=== PATIENT | male | born 1970 | race Caucasian/White ===

== ENCOUNTER → 2018-07-14 | Outpatient (CLI) | payer OTHER ==
[~2018-07-14] MED LIST: AMLO10TA6 PO; ASPI-496 PO; DULO60CA55 PO; LOSA25TA6 PO; METH-356 PO; METO-93 PO
[2018-07-14 10:00] LABS: BASOPHILS # (AUTO) 0.04 x10^3/uL (0-0.1); BASOPHILS % (AUTO) 0 % (0-1); EOSINOPHILS # (AUTO) 0.18 x10^3/uL (0-0.4); EOSINOPHILS % (AUTO) 2 % (1-7); LYMPHOCYTES % (AUTO) 25 % (22-44); MD NO; MEAN CORPUSCULAR HEMOGLOBIN 30.5 pg (27.5-34.5); MEAN CORPUSCULAR HGB CONC 34.2 g/dL (33.2-36.2); MEAN CORPUSCULAR VOLUME 89.1 fL (81-97); MEAN PLATELET VOLUME 8.4 fL (7.4-10.4); MONOCYTES # (AUTO) 0.55 x10^3/uL (0.2-0.8); MONOCYTES % (AUTO) 7 % (2-9); NEUTROPHILS # (AUTO) 5.31 x10^3/uL (1.8-6.8); NEUTROPHILS % (AUTO) 66 % (42-75); PLATELET COUNT 232 x10^3/uL (130-400); RED BLOOD COUNT 6.54 x10^6/uL (4.38-5.82); RED CELL DISTRIBUTION WIDTH 14.1 % (9.4-14.8)
[2018-07-14 10:05] LABS: ALBUMIN 3.5 g/dL (3.4-5.0); ANION GAP 6 mmol/L (5-15); CALCIUM 8.4 mg/dL (8.5-10.1); CHLORIDE 103 mmol/L (98-107)
[2018-07-14 10:11] LABS: ALANINE AMINOTRANSFERASE 45 U/L (12-78); ALKALINE PHOSPHATASE 52 U/L (45-117); CREATININE 0.86 mg/dL (0.7-1.3); TOTAL PROTEIN 7.6 g/dL (6.4-8.2)
== END | disposition home or self-care (01) ==
LOC: STAR 08:59
PROVIDERS: ATTEND Thoracic Surgery (Cardiothoracic Vascular Surgery)
DX: Z01.818 Encounter for other preprocedural examination (principal)
CPT/HCPCS: 36415; 80053; 85025; 93005

== ENCOUNTER 2018-07-20 07:55 | Inpatient (IN) | payer OTHER ==
[~2018-07-20] VITALS: Ht 177.8 cm; Wt 145.3 kg
[2018-07-20] MEDS ORDERED: LACTATED RINGERS 1,000 ML IV SCH ×2 (08:38→12:18)
[2018-07-20 09:08] VITALS: BP 160/110
[2018-07-20] MEDS ORDERED: EPINEPHRINE 1 MG/ML, 1ML ONE (09:29)
[2018-07-20] MEDS ORDERED: BUPIVACAINE/PF 0.5% ONE (09:29)
[2018-07-20] MEDS ORDERED: MIDAZOLAM 1 MG/ML, 2ML ONE (09:45)
[2018-07-20] MEDS ORDERED: DEXAMETHASONE 4 MG/ML, 1ML ONE (10:02)
[2018-07-20] MEDS ORDERED: CEFAZOLIN 1,000 MG ONE (10:02)
[2018-07-20] MEDS ORDERED: NEOSTIGMINE 1 MG/ML, 10ML ONE (10:02)
[2018-07-20] MEDS ORDERED: ROCURONIUM 10MG/ML,5ML ONE (10:02)
[2018-07-20] MEDS ORDERED: GLYCOPYRROLATE 0.2MG/1ML, 5ML ONE (10:02)
[2018-07-20] MEDS ORDERED: LACTATED RINGERS 1,000 ML ONE (10:02)
[2018-07-20] MEDS ORDERED: SUCCINYLCHOLINE 20 MG/ML, 10ML ONE (10:02)
[2018-07-20] MEDS ORDERED: PROPOFOL 10 MG/ML, 20ML ONE (10:02)
[2018-07-20] MEDS ORDERED: FENTANYL PF 250 MCG/5ML ONE (10:51)
[2018-07-20] MEDS ORDERED: FENTANYL PF 100 MCG/2ML ONE ×4 (11:14→13:08)
[2018-07-20] MEDS ORDERED: HYDROMORPHONE EPI SCH (12:00)
[2018-07-20] MEDS ORDERED: BUPIVACAINE EPI SCH (12:00)
[2018-07-20] MEDS ORDERED: ONDANSETRON 2MG/ML, 2ML IV PRN (12:00)
[2018-07-20] MEDS ORDERED: SODIUM CHLORIDE 0.9% EPI SCH (12:00)
[2018-07-20] MEDS ORDERED: LABETALOL 5MG/ML, 20ML IV PRN (12:00)
[2018-07-20] MEDS ORDERED: hydrALAzine 20 MG/ML, 1ML IV PRN (12:00)
[2018-07-20] MEDS ORDERED: OXYcodone 5 MG/5 ML ORAL.SOL UDC PO PRN (12:00)
[2018-07-20] MEDS ORDERED: ACETAMINOPHEN 325 MG TABLET PO PRN (12:00)
[2018-07-20] MEDS ORDERED: HYDROmorphone 2 MG/ML, 1ML ONE (12:26)
[2018-07-20] MEDS ORDERED: ONDANSETRON 2MG/ML, 2ML IVPush PRN (12:30)
[2018-07-20] MEDS ORDERED: ENALAPRILAT 1.25 MG/ML, 2ML IVPush PRN (12:30)
[2018-07-20] MEDS ORDERED: FAMOTIDINE 20 MG TABLET PO SCH (12:30)
[2018-07-20] MEDS ORDERED: DIPHENHYDRAMINE 50 MG/ML, 1ML IVPush PRN (12:30)
[2018-07-20] MEDS ORDERED: LORazepam 2 MG/ML, 1ML IVPush PRN (12:30)
[2018-07-20] MEDS ORDERED: DIPHENHYDRAMINE 25 MG CAPSULE PO PRN (12:30)
[2018-07-20] MEDS ORDERED: hydrALAzine 20 MG/ML, 1ML IVPush PRN (12:30)
[2018-07-20] MEDS: HYDROmorphone 1 MG/ML, 1ML IV PRN ×4 (12:31→13:57)
[2018-07-20] MEDS: FENTANYL PF 100 MCG/2ML IV PRN ×2 (12:31→12:36)
[2018-07-20] MEDS ORDERED: LORazepam 2 MG/ML, 1ML ONE (12:42)
[2018-07-20] MEDS ORDERED: OXYcodone 5 MG/5 ML ORAL.SOL UDC ONE (12:57)
[2018-07-20] MEDS ORDERED: HYDROmorphone 5 MG, BUPIVACAINE/PF 0.5%, 30ML 62.5 ML in SODIUM CHLORIDE 0.9% 182.5 ML EPIDCONT SCH (13:00)
[2018-07-20] MEDS ORDERED: METHADONE 10 MG TABLET PO ONE (14:00)
[2018-07-20] MEDS: HYDROmorphone 2 MG/ML, 1ML IV PRN ×4 (14:15→14:51)
[2018-07-20 15:20] VITALS: BP 152/84
[2018-07-20] MEDS: INSULIN REGULAR 100 UNITS/ML, 3ML VIAL SQ-INSULIN SCH ×3 (16:00→21:06)
[2018-07-20] MEDS ORDERED: METOPROLOL SUCCINATE 25 MG TAB.ER.24H ONE (17:17)
[2018-07-20] MEDS: METOPROLOL SUCCINATE 50 MG TAB.ER.24H PO SCH ×2 (17:27→21:00)
[2018-07-20] MEDS: METHADONE 10 MG TABLET PO SCH ×2 (17:27→21:06)
[2018-07-20 17:30] VITALS: BP 143/84
[2018-07-20 18:32] VITALS: BP 141/85
[2018-07-20] MEDS ORDERED: HYDROmorphone 2 MG/ML, 1ML IVPush PRN (19:00)
[2018-07-20] MEDS ORDERED: HYDROmorphone PCA 30 MG/30 ML IV PRN (19:00)
[2018-07-20] MEDS ORDERED: METOPROLOL SUCCINATE 100 MG TAB.ER.24H ONE (20:53)
[2018-07-20] MEDS: FAMOTIDINE 20 MG/2 ML IVPush SCH (21:06)
[2018-07-20] MEDS: LORazepam 0.5MG TABLET PO PRN (23:05)
[2018-07-20 23:26] VITALS: BP 122/55
[2018-07-21 04:00] VITALS: BP 123/62
[2018-07-21 04:30] VITALS: BP 130/70
[2018-07-21 05:57] LABS: BASOPHILS # (AUTO) 0.03 x10^3/uL (0-0.1); BASOPHILS % (AUTO) 0 % (0-1); EOSINOPHILS % (AUTO) 0 % (1-7); LYMPHOCYTES # (AUTO) 1.92 x10^3/uL (1-3.4); LYMPHOCYTES % (AUTO) 12 % (22-44); MD NO; MEAN CORPUSCULAR HEMOGLOBIN 30.9 pg (27.5-34.5); MEAN CORPUSCULAR HGB CONC 34.2 g/dL (33.2-36.2); MEAN CORPUSCULAR VOLUME 90.3 fL (81-97); MEAN PLATELET VOLUME 9.1 fL (7.4-10.4); MONOCYTES # (AUTO) 1.24 x10^3/uL (0.2-0.8); MONOCYTES % (AUTO) 8 % (2-9); NEUTROPHILS # (AUTO) 12.48 x10^3/uL (1.8-6.8); NEUTROPHILS % (AUTO) 80 % (42-75); PLATELET COUNT 208 x10^3/uL (130-400); RED BLOOD COUNT 6.14 x10^6/uL (4.38-5.82)
[2018-07-21 06:03] LABS: ANION GAP 13 mmol/L (5-15); CALCIUM 7.6 mg/dL (8.5-10.1); CHLORIDE 97 mmol/L (98-107)
[2018-07-21] MEDS: METHADONE 10 MG TABLET PO SCH ×5 (06:40→22:40)
[2018-07-21] MEDS: INSULIN REGULAR 100 UNITS/ML, 3ML VIAL SQ-INSULIN SCH ×4 (07:58→21:14)
[2018-07-21] MEDS: FAMOTIDINE 20 MG/2 ML IVPush SCH ×2 (07:58→21:04)
[2018-07-21] MEDS: ENOXAPARIN 40 MG/0.4 ML SQ SCH (07:59)
[2018-07-21] MEDS: METOPROLOL SUCCINATE 50 MG TAB.ER.24H PO SCH ×3 (07:59→21:04)
[2018-07-21] MEDS: AMLODIPINE 10 MG TAB PO SCH (07:59)
[2018-07-21] MEDS: LOSARTAN 25MG TABLET PO SCH (07:59)
[2018-07-21] MEDS: DULOXETINE 30 MG CAPSULE.DR PO SCH (07:59)
[2018-07-21] MEDS ORDERED: KETOROLAC 30 MG/1 ML IVPush PRN (09:00)
[2018-07-21 10:46] VITALS: BP 133/73
[2018-07-21 14:44] VITALS: BP 115/70
[2018-07-21] MEDS ORDERED: METOPROLOL SUCCINATE 25 MG TAB.ER.24H ONE (16:48)
[2018-07-21 19:00] VITALS: BP 121/72
[2018-07-21] MEDS: LORazepam 0.5MG TABLET PO PRN (22:46)
[2018-07-22 03:00] VITALS: BP 136/76
[2018-07-22] MEDS: METHADONE 10 MG TABLET PO SCH ×5 (06:46→21:57)
[2018-07-22 07:50] VITALS: BP 125/79
[2018-07-22] MEDS: AMLODIPINE 10 MG TAB PO SCH (07:54)
[2018-07-22] MEDS: INSULIN REGULAR 100 UNITS/ML, 3ML VIAL SQ-INSULIN SCH ×4 (07:54→22:10)
[2018-07-22] MEDS: LOSARTAN 25MG TABLET PO SCH (07:54)
[2018-07-22] MEDS: FAMOTIDINE 20 MG/2 ML IVPush SCH ×2 (07:54→21:57)
[2018-07-22] MEDS: METOPROLOL SUCCINATE 50 MG TAB.ER.24H PO SCH ×3 (07:54→21:58)
[2018-07-22] MEDS: DULOXETINE 30 MG CAPSULE.DR PO SCH (07:55)
[2018-07-22] MEDS: ENOXAPARIN 40 MG/0.4 ML SQ SCH (07:55)
[2018-07-22] MEDS: ACETAMINOPHEN 500 MG TABLET PO SCH ×3 (10:52→23:11)
[2018-07-22] MEDS: DIAZEPAM 5 MG TABLET PO PRN (11:50)
[2018-07-22] MEDS: IBUPROFEN 800 MG TABLET PO SCH ×2 (12:30→16:58)
[2018-07-22 13:25] VITALS: BP 116/70
[2018-07-22 19:14] VITALS: BP 122/75
[2018-07-23 00:54] VITALS: BP 128/81
[2018-07-23] MEDS: METHADONE 10 MG TABLET PO SCH ×3 (05:29→13:37)
[2018-07-23] MEDS: ACETAMINOPHEN 500 MG TABLET PO SCH ×2 (05:29→11:23)
[2018-07-23 07:35] VITALS: BP 156/84
[2018-07-23] MEDS: METOPROLOL SUCCINATE 50 MG TAB.ER.24H PO SCH (07:55)
[2018-07-23] MEDS: FAMOTIDINE 20 MG/2 ML IVPush SCH (07:55)
[2018-07-23] MEDS: ENOXAPARIN 40 MG/0.4 ML SQ SCH (07:55)
[2018-07-23] MEDS: INSULIN REGULAR 100 UNITS/ML, 3ML VIAL SQ-INSULIN SCH ×2 (07:55→11:58)
[2018-07-23] MEDS: DULOXETINE 30 MG CAPSULE.DR PO SCH (07:55)
[2018-07-23] MEDS: AMLODIPINE 10 MG TAB PO SCH (07:55)
[2018-07-23] MEDS: LOSARTAN 25MG TABLET PO SCH (07:55)
[2018-07-23] MEDS: IBUPROFEN 800 MG TABLET PO SCH ×2 (07:55→11:58)
[2018-07-23] MEDS ORDERED: HYDROmorphone 2MG TABLET PO PRN (09:30)
[2018-07-23] MEDS ORDERED: HYDR2TAB29 PO (10:15)
[2018-07-23] MEDS: DIAZEPAM 5 MG TABLET PO PRN (13:37)
[2018-07-23 14:00] VITALS: BP 109/72
== END 2018-07-23 14:50 | disposition home or self-care (01) | DRG 165 ==
LOC: ORIP 07:55 → 4NOR 15:20
PROVIDERS: ADMIT Thoracic Surgery (Cardiothoracic Vascular Surgery); ATTEND Thoracic Surgery (Cardiothoracic Vascular Surgery)
PROC: 0WBC0ZZ Excision of Mediastinum, Open Approach (ICD-10-PCS; principal; 2018-07-20 10:00)
DX: S22.39XA Fracture of one rib, unspecified side, initial encounter for closed fracture (principal); I10 Essential (primary) hypertension; E66.01 Morbid (severe) obesity due to excess calories; X58.XXXA Exposure to other specified factors, initial encounter; D17.1 Benign lipomatous neoplasm of skin and subcutaneous tissue of trunk; G89.29 Other chronic pain; M54.9 Dorsalgia, unspecified; Z79.899 Other long term (current) drug therapy; Z79.82 Long term (current) use of aspirin; Y93.89 Activity, other specified; Y92.89 Other specified places as the place of occurrence of the external cause; Y99.8 Other external cause status
CPT/HCPCS: 36415; J3490; 71045; 80048; 82962; 85025; 86850; 86900; 86923; 88304; 88307; C1729; G0378; J0171; J0690; J1100; J1170; J1650; J1815; J2250; J2704; J2710; J3010; J0330; J2060; J7050; J7120